=== PATIENT | female | born 1950 | race Caucasian/White ===

== ENCOUNTER 2018-05-20 13:18 | Emergency (ER) | payer MEDICARE, OTHER ==
[~2018-05-20] VITALS: Ht 160 cm; Wt 79.6 kg
[~2018-05-20 13:18] MED LIST: ATEN100T PO; HYDR25TA6 PO; ZOC10 PO
[2018-05-20 13:25] VITALS: BP 187/88; PULSE 86; RESP 18; Ht 160 cm; Wt 79.6 kg
[2018-05-20] MEDS ORDERED: DIPHTH/TET/ACEL PERTUSS (ADULT) 0.5 ML VIAL IM* ONE (14:00)
[2018-05-20] MEDS ORDERED: ACETAMINOPHEN 325 MG TAB PO ONE ×2 (14:00)
[2018-05-20] MEDS ORDERED: CEPH-443 PO (16:06)
[2018-05-20] MEDS ORDERED: ACET500C5 PO (16:06)
--- NOTE | 2018-05-20 16:12 | ERD ---
ER Documentation Chief Complaint Chief Complaint head/face pain/abrassion/ bleeding bilat knee painx 30 minutes post fall HPI 67-year-old female presents after tripping over a dog leash today. She landed on her face. She has anterior chest wall pain, sustained a laceration over the bridge of her nose. There is no history of loss of consciousness, vomiting. She has had a nosebleed but currently the bleeding has stopped. She has mild neck pain. She denies deficits or weakness. She denies vomiting, visual changes. ROS All systems reviewed and are negative except as per history of present illness. Medications Home Meds Active Scripts Cephalexin* (Keflex*) 500 Mg Capsule, 500 MG PO QID for 7 Days, CAP Prov:DIPTI DAVIS MD 05/20/18 Acetaminophen* (Tylophen*) 500 Mg Capsule, 1 CAP PO Q6H PRN for PAIN AND OR ELEVATED TEMP, #15 CAP Prov:DIPTI DAVIS MD 05/20/18 Reported Medications Simvastatin (Simvastatin) 10 Mg Tablet, 10 MG PO HS, TAB 06/04/14 Hydrochlorothiazide* (Hydrochlorothiazide*) 25 Mg Tab, 25 MG PO DAILY, TAB 06/04/14 Atenolol* (Atenolol*) 100 Mg Tablet, 100 MG PO DAILY, TAB 06/04/14 Allergies Allergies: Coded Allergies: aspirin (Verified Allergy, Unknown, 06/04/14) iodine (Verified Allergy, Unknown, 06/04/14) PMhx/Soc Medical and Surgical Hx: pt denies Medical Hx, pt denies Surgical Hx History of Surgery: No Anesthesia Reaction: No Hx Neurological Disorder: No Hx Respiratory Disorders: No Hx Cardiac Disorders: No Hx Psychiatric Problems: No Hx Miscellaneous Medical Probl: No Hx Alcohol Use: No Hx Substance Use: No Hx Tobacco Use: No Smoking Status: Never smoker FmHx Family History: No diabetes, No coronary disease, No other Physical Exam Vitals Vital Signs Date Temp Pulse Resp B/P (MAP) Pulse Ox O2 O2 Flow FiO2 Time Delivery Rate 05/20/18 98.9 86 18 187/88 97 13:25 (121) Physical Exam Const: No acute distress Head: Atraumatic Eyes: Normal Conjunctiva ENT: Normal External Ears, Nose and Mouth. 1 cm U-shaped laceration over the bridge of nose. Well approximated. Mild generalized nasal bridge tenderness without deformities. No septal hematoma. Neck: Full range of motion. No meningismus. Tender cervical paraspinous muscles. Resp: Clear to auscultation bilaterally Cardio: Regular rate and rhythm, no murmurs. Tenderness anterior chest wall without crepitus, deformities, skin changes. Abd: Soft, non tender, non distended. Normal bowel sounds Skin: No petechiae or rashes Back: No midline or flank tenderness Ext: No cyanosis, or edema Neur: Awake and alert on. Normal gait. No appreciable focal neurologic deficits. Psych: Normal Mood and Affect Results 24 hrs Current Medications Medications Dose Sig/Griselda Start Time Status Last (Trade) Ordered Route PRN Stop Time Admin Dose Reason Admin 650 mg ONCE ONCE 05/20/18 DC 05/20/18 Acetaminophen PO 14:00 14:15 (Tylenol 05/20/18 14:12 Tab) 650 mg ONCE ONCE 05/20/18 DC Acetaminophen PO 14:00 (Tylenol 05/20/18 14:03 Tab) Diphtheria/ 0.5 ml ONCE ONCE 05/20/18 DC 05/20/18 Tetanus/Acell IM* 14:00 14:16 Pertussis 05/20/18 14:03 (Adacel) Cephalexin 500 mg ONCE ONCE 05/20/18 DC 05/20/18 (Keflex) PO 16:30 16:31 05/20/18 16:31 Procedures/MDM Patient given a tetanus booster and Tylenol for pain. Procedure note-nasal laceration was irrigated copious with normal saline. Dermabond and Steri-Strips were used to reapproximate the wound. Patient tolerated procedure well. CT brain shows no acute abnormalities. CT facial bones shows a depressed nasal bone fracture. X-ray C spine 3V Interpreted by me: Bones: No fracture Joints: No dislocation Foreign body: None. Impression-no acute findings on C-spine x-ray Chest X-ray 1V Interpreted by me: Soft Tissue: No acute abnormalities Bones: No acute abnormalities Mediastinum/Cardiac Silhouette/Lungs: No acute abnormalities. Impression- normal 1 view chest x-ray EKG: Rate/Rhythm: Normal Sinus Rhythm. Rate equals 72 QRS, ST, T-waves: No changes consistent w/ acute ischemia Impression: No evidence of ischemia or arrhythmia Patient given Keflex 500 mg by mouth for overlying laceration of nasal bone fracture although laceration does appear superficial not through the dermis. Given resources for universal referral for evaluation for nasal bone fracture. She has no signs of septal hematoma, cranial bleeding, neck injury, deficits, additional complications due to her mechanical fall today. The patient was stable with no new complaints during the ER course. Clinically, there is no current evidence to suggest meningitis, sepsis, acute abdomen, pneumonia, stroke, acute coronary syndrome, pulmonary embolism, aortic dissection or any other emergent condition appearing to require further evaluation or hospitalization. Patient counseled regarding my diagnostic impression and care plan. Prior to discharge all questions answered. Pt agrees with treatment plan and understands strict return precautions. Pt is instructed to follow up with primary care provider within 24-48 hours. Precautionary instructions provided including instructions to return to the ER if not improving or for any worsening or changing symptoms or concerns. Departure Diagnosis: Primary Impression: Nasal bone fractures Encounter type: initial encounter Fracture type: closed Qualified Codes: S02.2XXA - Fracture of nasal bones, initial encounter for closed fracture Additional Impression: Acute head injury Encounter type: initial encounter Qualified Codes: S09.90XA - Unspecified injury of head, initial encounter Condition: Stable Patient Instructions: Fracture, Nose (With X-Ray), Laceration, Face (Skin Glue) Additional Instructions: There is a nasal bone fracture. See ENT for further evaluation and treatment. Recommend wound check in 2 days. Recheck sooner for redness, fevers, new worsening symptoms. Additional examinations normal today. DIPTI DAVIS MD May 20, 2018 16:12
[2018-05-20] MEDS ORDERED: CEPHALEXIN 500 MG CAP PO ONE (16:30)
== END 2018-05-20 17:08 | disposition home or self-care (01) ==
LOC: FTE 13:18
DX: S02.2XXA Fracture of nasal bones, initial encounter for closed fracture (principal); R07.9 Chest pain, unspecified; W01.0XXA Fall on same level from slipping, tripping and stumbling without subsequent striking against object, initial encounter; Y92.9 Unspecified place or not applicable; Z23 Encounter for immunization
CPT/HCPCS: 70450; 70486; 71045; 72040; 90471; 90715; 93005